=== PATIENT | male | born 1965 | race Caucasian/White ===

== ENCOUNTER 2016-10-12 08:13 | Emergency (ER) | payer BC ==
--- NOTE | 2016-10-12 08:41 | Emergency Department Record ---
History of Present Illness - General Chief Complaint: Chest Pain Stated Complaint: CHEST NUMBNESS/PAIN Time Seen by Provider: 10/12/16 08:25 Source: Patient Mode of Arrival: Ambulatory Limitations: No limitations - History of Present Illness Initial Comments: The patient is here due to a 9-10 hour hx of arm and chest discomfort. He describes the symptoms as numbness over the anterior portion of both arms with radiation to his chest. He denies any SOB, JOVANI, sweating, or nausea. The patient has taken 4 total aspirins since the onset of the discomfort. There is no change with exertion and the patient denies any hx of similar issues. The patient does have significant cardiac risk factors of HTN, heavy tobacco use, positive family hx of CAD, and high cholesteral and triglycerides. Onset/Timin -: Hour(s) Onset: During rest Pain Location: Left chest, Right chest Pain Radiation: RUE, LUE Severity: Mild Quality: Other Consistency: Constant Improves With: Nothing Worsens With: Nothing Treatments Prior to Arrival: Aspirin Treatment Prior to Arrival Comment:: 4 Aspirin - Related Data Home Medications Medication Instructions Recorded Confirmed Last Taken Alprazolam [Xanax Xr] 1 mg PO DAILY 10/12/16 10/12/16 Unknown Gemfibrozil [Lopid] 600 mg PO BID 10/12/16 10/12/16 Unknown Losartan/Hydrochlorothiazide 1 each PO DAILY 10/12/16 10/12/16 Unknown [Hyzaar 100-12.5 Tablet] Paroxetine HCl [Paxil] 20 mg PO DAILY 10/12/16 10/12/16 Unknown Allergies Allergy/AdvReac Type Severity Reaction Status Date / Time No Known Drug Allergies Allergy Verified 10/12/16 08:25 Travel Screening - Travel/Exposure Within Last 30 Days Have you traveled within the last 30 days?: No Review of Systems Constitutional: Denies: Chills, Fever Eyes: Denies: Eye discharge ENT: Denies: Congestion Respiratory: Denies: Cough, Dyspnea Cardiovascular: Reports: Chest pain. Denies: Arrhythmia Endocrine: Denies: Fatigue Gastrointestinal: Denies: Diarrhea, Vomiting Genitourinary: Denies: Dysuria Musculoskeletal: Denies: Back pain Past Medical History - SOCIAL HISTORY Smoking Status: Current every day smoker Alcohol Use: Occassional Drug Use: None - RESPIRATORY Hx Respiratory Disorders: No - CARDIOVASCULAR Hx Cardio Disorders: Yes Hx Hypertension: Yes Comment:: high cholesterol - NEURO Hx Neuro Disorders: No - GI Hx GI Disorders: No - Hx Genitourinary Disorders: No - ENDOCRINE Hx Endocrine Disorders: No - MUSCULOSKELETAL Hx Musculoskeletal Disorders: No - PSYCH Hx Psych Problems: Yes Hx Anxiety: Yes Comment:: panic attacks - HEMATOLOGY/ONCOLOGY Hx Hematology/Oncology Disorders: No Family Medical History Any Significant Family History?: Yes Hx Heart Disease: Father, Brother/Sister Physical Exam - General General Appearance: Alert, Oriented x3, Cooperative, No acute distress - Head Head exam: Atraumatic, Normocephalic, Normal inspection - Eye Eye exam: Normal appearance, PERRL - ENT Throat exam: Normal inspection. negative: Tonsillar erythema, Tonsillar exudate - Neck Neck exam: Normal inspection, Full ROM. negative: Tenderness - Respiratory Respiratory exam: Normal lung sounds bilaterally. negative: Respiratory distress - Cardiovascular Cardiovascular Exam: Regular rate, Normal rhythm, Normal heart sounds - GI/Abdominal GI/Abdominal exam: Soft, Normal bowel sounds. negative: Tenderness - Extremities Extremities exam: Normal inspection, Full ROM, Normal capillary refill. negative: Tenderness - Neurological Neurological exam: Alert, Normal gait. negative: Abnormal gait, Motor sensory deficit Course Vital Signs 10/12/16 08:17 Temperature 98.4 F Pulse Rate 74 Respiratory 16 Rate Blood Pressure 143/87 Pulse Ox 98 - Reevaluation(s) Reevaluation #1: The patient is doing well. I did discuss the lab results with the patient and the need for transfer due to the cardiac enzymes being positive. The patient and his would like to go to [facility] [place]. 10/12/16 09:19 Reevaluation #2: I did discuss the case with Dr. Rae (Cardiology) at [facility] [place] and he does accept the patient to the hospital. 10/12/16 09:27 Reevaluation #3: The patient is doing better. His pain is almost resolved. The patient's vitals are WNL's and he still appears very stable and cooperative. 10/12/16 09:50 10/12/16 09:50 Medical Decision Making - Data Complexity MDM Data: Labs Ordered and/or Reviewed, X-Ray Ordered and/or Reviewed, EKG Ordered and/or Reviewed - Lab Data Result diagrams: 10/12/16 08:40 10/12/16 08:40 - EKG Data -: EKG Interpreted by Me EKG: Abnormal EKG (NSR at 68, Q waves V2-5. ) - Radiology Data Radiology results: Report reviewed (CXR: Neg) Disposition Disposition: Transfer Clinical Impression: Acute SC Qualifiers: Myocardial infarction ST status: non-ST elevation myocardial infarction Qualified Code(s): I21.4 - Non-ST elevation (NSTEMI) myocardial infarction Disposition: Acute Care Hospital Transfer Transfer To: [facility] [place] Reason For Transfer: Acute [place] Accepting Physician: Butch Time Discussed w/Accepting Physician: 09:28 Condition: (2) Stable Forms: Patient Portal Access Time of Disposition: :28
[2016-10-12 08:50] LABS: BASO % 0.1 % (0-6); EOS % 0.6 % (0-6); GRAN % 78.4 % (47-80); HEMOGLOBIN 15.1 gm/dl (14.0-18.0); MEAN CELL VOLUME 85.9 fl (81-97); MEAN CORPUSCULAR HEMOGLOBIN 28.8 pg (27-33); MEAN CORPUSCULAR HGB CONC 33.6 g/dl (32-36); MEAN PLATELET VOLUME 9.6 fl (7.4-10.4); MONO % 5.9 % (0-9); PLATELET COUNT 229 K/uL (130-400); RED BLOOD COUNT 5.24 M/uL (4.40-5.70); RED CELL DISTRIBUTION WIDTH 14.1 % (11.5-14.5); WHITE BLOOD COUNT W/O DIFF 11.1 K/uL (4.2-12.2)
[2016-10-12 09:01] LABS: ANION GAP 9.6 (7-16); BLOOD UREA NITROGEN 17 mg/dL (9-20); CARBON DIOXIDE 25.4 mmol/L (22-30); CREATINE PHOSPHOKINASE 957 U/L (55-170); CREATININE 1.1 mg/dL (0.66-1.25); EST GLOMERULAR FILTRATION RATE > 60 ml/min; GLUCOSE,RANDOM 122 mg/dL (70-110); INR 0.94; PARTIAL THROMBOPLASTIN TIME 26.3 SECONDS (24.5-39.1); PROTHROMBIN TIME (PATIENT) 10.6 SECONDS (9.5-12.1)
[2016-10-12 09:13] LABS: CKMB 52.8 ug/L (0-6)
[2016-10-12] MEDS ORDERED: HEPARIN SODIUM 1000 UNIT/1 ML 10ML VIAL IVP ONE (09:14)
[2016-10-12] MEDS ORDERED: MORPHINE SULFATE 5 MG/ML PFS IVP ONE (09:15)
[2016-10-12] MEDS ORDERED: HEPARIN SODIUM/D5W 25,000 UNITS/500 ML BAG IV SCH (09:15)
[2016-10-12] MEDS ORDERED: NITROGLYCERIN/D5W 50 MG/250 ML ML IV SCH (09:15)
--- NOTE | 2016-10-13 07:50 | RADIOLOGY REPORT ---
EXAM: CHEST, SINGLE AP PORTABLE VIEW HISTORY: PATIENT HAS CHEST NUMBNESS THAT RADIATES DOWN ARMS. TECHNIQUE: A single AP portable view of the chest is provided without comparison examinations. FINDINGS: The cardiomediastinal silhouette is within normal limits for size and contour. The broderick appear unremarkable. There is no radiographic evidence of a focal infiltrate, pleural effusion, or pneumothorax. IMPRESSION: NO RADIOGRAPHIC EVIDENCE OF AN ACUTE INTRATHORACIC PROCESS. JOB NUMBER: [id number] MTDD
== END 2016-10-12 10:16 | disposition short-term general hospital (02) ==
LOC: ER 08:13
DX: I21.4 Non-ST elevation (NSTEMI) myocardial infarction (principal); I10 Essential (primary) hypertension; F17.210 Nicotine dependence, cigarettes, uncomplicated
CPT/HCPCS: 99285 ×2; 96365; 96366; 96375; 96368; 82550; 85025; 85730; 85610; 82553; 84484; 80048; 71010; 93005; 93010; J2270